=== PATIENT | male | born 1990 | race African-American/Black ===

== ENCOUNTER 2017-04-07 15:20 | Emergency (ER) | payer SELFPAY ==
[~2017-04-07] VITALS: Ht 182.9 cm; Wt 86.2 kg
[~2017-04-07 15:20] MED LIST: NKM
[2017-04-07 15:30] VITALS: BP 128/80
--- NOTE | 2017-04-07 15:31 | Emergency Room Report ---
History of Present Illness General Chief Complaint: Overdose Source: Patient, EMS Present Illness HPI 26-year-old male presents to the emergency department brought by ambulance for possible ingestion of excessive amount of Tylenol. Patient's girlfriend called 911 because she was concerned that he was drinking and took half a bottle of Tylenol. Patient presents mildly altered, slurred speech however alert and answering questions. Patient denies taking half a bottle of Tylenol, he states he only took 2-3 tablets. Patient denies SI, HI, or psychiatric history. Reports ETOH : beers today, three "shots" last night. Pt. reports previous recreational drug use, however denies recent use in the last 3 months. History and ROS is limited due to poor patient cooperation. Currently the patient is not on a 5150 hold. Allergies: Coded Allergies: No Known Allergies (Unverified , 04/07/17) Patient History Past Medical History: see triage record Past Surgical History: none Pertinent Family History: none Reviewed Nursing Documentation: PMH: Agreed, PSxH: Agreed Nursing Documentation-PMH Past Medical History: No Stated History Review of Systems All Other Systems: limited - poor pt. cooperation Physical Exam Vital Signs Date Time Temp Pulse Resp B/P (MAP) Pulse Ox O2 Delivery O2 Flow Rate FiO2 04/07/17 15:14 98.2 120 20 128/80 99 Room Air Sp02 EP Interpretation: reviewed, normal General Appearance: no apparent distress, alert, GCS 15, non-toxic Head: normocephalic, atraumatic Eyes: bilateral eye normal inspection, bilateral eye PERRL ENT: hearing grossly normal, normal voice Neck: full range of motion Respiratory: lungs clear, normal breath sounds, speaking full sentences Cardiovascular #1: regular rate, rhythm, normal capillary refill, tachycardia Gastrointestinal: non tender, soft Rectal: deferred Musculoskeletal: back normal, gait/station normal, normal range of motion, non- tender Neurologic: alert, oriented x3, responsive, motor strength/tone normal, sensory intact, normal gait, speech normal - slurred, but conversing normally Psychiatric: memory normal, no delusions, other - hyperactive, and has a very anxious and restless affect, pt. keeps wanting to leave department. Skin: normal color, no rash, warm/dry, well hydrated Medical Decision Making PA Attestation Dr. jones is my supervising Physician whom patient management has been discussed with. Diagnostic Impression: Primary Impression: Drug overdose Qualified Codes: T50.901A - Poisoning by unspecified drugs, medicaments and biological substances, accidental (unintentional), initial encounter ER Course 26-year-old male presents to the emergency department brought by ambulance for possible ingestion of excessive amount of Tylenol. Patient's girlfriend called 911 because she was concerned that he was drinking and took half a bottle of Tylenol. Patient presents mildly altered, slurred speech however alert and answering questions. Patient denies taking half a bottle of Tylenol, he states he only took 2-3 tablets. Patient denies SI, HI, or psychiatric history. Reports ETOH : beers today, three "shots" last night. Pt. reports previous recreational drug use, however denies recent use in the last 3 months. History and ROS is limited due to poor patient cooperation. Currently the patient is not on a 5150 hold. -Per telephone conversation with girlfriend to get more further details of this incident. She states that she is worried he may have taken too much Tylenol as he was drinking earlier and he does have some back pain for which she was taking Tylenol for her and she believes that due to pain acutely intoxicated with alcohol he may is unintentionally taken too many. Girlfriend states that ingestion occurred at approximately 10 AM this morning. She also confirms He has no psychiatric history. Pt is hyperactive, and has a very anxious and restless affect, pt. keeps wanting to leave department. Ddx considered but are not limited to OD, SI/HI, psychosis, UTI, intoxication Vital signs: are WNL, pt. is afebrile H&PE are most consistent with possible unintentional/ accidental OD, no precise plan of self harm, pt. is goal oriented and is worried about missing work this evening. -- Due to involvement of Tylenol pt. does require Acetaminophen level evaluation for full medical clearance, PT. will receive Psychiatric Consultation to determine psychiatric clearance. ORDERS: - Behavioral Restraints were initially ordered due to pt. not cooperating for MSE, blood draw, however after having Security come to bedside, pt. calmed down and began to cooperate. Restraints were never actually applied by RN, cancellation of restraints by Provider as they were not necessary. Acetaminophen : Elevated at 6.5 Given that first Tylenol level obtained is at 6 hours post ingestion, likely reyes that it will continue to rise is very low , however will repeat in 4 hours. -CBC, CMP: Unremarkable/ WNL -UA: negative for infection see results attached. -UDS: Negative -Salicylates- no acute intoxication. -Serum ETOH: 232 Given that first Tylenol level obtained is at 6 hours post ingestion, likely reyes that it will continue to rise is very low , however will repeat in 4 hours. ED INTERVENTIONS: - 2 mg Ativan IV -1 Liter NS PSYCH CONSULT: Dr. Garnett ( Psychiatric Consult) came to evaluate this patient. After speaking to him she is concluded that she is not at high risk for self-harm at this time. At this time pt. is not determined to have acute psychological condition to warrant 72 hour hold. DISPOSITION: Pt Eloped approximately 1 hour prior to when repeat Tylenol Level. Labs Test 04/07/17 15:25 04/07/17 15:40 Urine Opiates Screen Negative (NEGATIVE) Urine Barbiturates Screen Negative (NEGATIVE) Phencyclidine (PCP) Screen Negative (NEGATIVE) Urine Amphetamines Screen Negative (NEGATIVE) Urine Benzodiazepines Screen Negative (NEGATIVE) Urine Cocaine Screen Negative (NEGATIVE) Urine Marijuana (THC) Screen Negative (NEGATIVE) White Blood Count 6.1 K/UL (4.8-10.8) Red Blood Count 4.88 M/UL (4.70-6.10) Hemoglobin 13.7 G/DL (14.2-18.0) Hematocrit 42.7 % (42.0-52.0) Mean Corpuscular Volume 88 FL (80-99) Mean Corpuscular Hemoglobin 28.0 PG (27.0-31.0) Mean Corpuscular Hemoglobin Concent 32.0 G/DL (32.0-36.0) Red Cell Distribution Width 12.5 % (11.6-14.8) Platelet Count 222 K/UL (150-450) Mean Platelet Volume 6.5 FL (6.5-10.1) Neutrophils (%) (Auto) 67.1 % (45.0-75.0) Lymphocytes (%) (Auto) 23.2 % (20.0-45.0) Monocytes (%) (Auto) 7.8 % (1.0-10.0) Eosinophils (%) (Auto) 0.4 % (0.0-3.0) Basophils (%) (Auto) 1.5 % (0.0-2.0) Sodium Level 143 MMOL/L (136-145) Potassium Level 3.7 MMOL/L (3.5-5.1) Chloride Level 106 MMOL/L (98-107) Carbon Dioxide Level 23 MMOL/L (21-32) Anion Gap 14 mmol/L (5-15) Blood Urea Nitrogen 10 mg/dL (7-18) Creatinine 1.1 MG/DL (0.55-1.30) Estimat Glomerular Filtration Rate > 60 mL/min (>60) Glucose Level 107 MG/DL (74-106) Calcium Level 9.4 MG/DL (8.5-10.1) Total Bilirubin 0.7 MG/DL (0.2-1.0) Aspartate Amino Transf (AST/SGOT) 34 U/L (15-37) Alanine Aminotransferase (ALT/SGPT) 42 U/L (12-78) Alkaline Phosphatase 73 U/L (46-116) Total Protein 8.0 G/DL (6.4-8.2) Albumin 4.4 G/DL (3.4-5.0) Globulin 3.6 g/dL Albumin/Globulin Ratio 1.2 (1.0-2.7) Salicylates Level 1.5 ug/mL (2.8-20) Acetaminophen Level 66 MCG/ML (10-30) Serum Alcohol 232 mg/dL Last Vital Signs Date Time Temp Pulse Resp B/P (MAP) Pulse Ox O2 Delivery O2 Flow Rate FiO2 04/07/17 15:14 98.2 120 20 128/80 99 Room Air Disposition: ELOPED Condition: Unknown Jenny Cordeor Apr 07, 2017 15:31
[2017-04-07] MEDS: LORazepam Inj 2mg/ml 1ml IM ONE ×2 (15:43→15:47)
[2017-04-07 16:08] LABS: BASOPHILS % (AUTO) 1.5 % (0.0-2.0); EOSINOPHILS % (AUTO) 0.4 % (0.0-3.0); HEMATOCRIT 42.7 % (42.0-52.0); HEMOGLOBIN 13.7 G/DL (14.2-18.0); LYMPHOCYTES % (AUTO) 23.2 % (20.0-45.0); MEAN CORPUSCULAR VOLUME 88 FL (80-99); MONOCYTES % (AUTO) 7.8 % (1.0-10.0); NEUTROPHILS % (AUTO) 67.1 % (45.0-75.0); PLATELET COUNT 222 K/UL (150-450); RED BLOOD COUNT 4.88 M/UL (4.70-6.10); RED CELL DISTRIBUTION WIDTH 12.5 % (11.6-14.8); WHITE BLOOD COUNT 6.1 K/UL (4.8-10.8)
[2017-04-07 16:30] LABS: ALANINE AMINOTRANSFERASE 42 U/L (12-78); ALBUMIN 4.4 G/DL (3.4-5.0); ALBUMIN/GLOBULIN RATIO 1.2 (1.0-2.7); ALKALINE PHOSPHATASE 73 U/L (46-116); ANION GAP 14 mmol/L (5-15); ASPARTATE AMINO TRANSFERASE 34 U/L (15-37); BILIRUBIN,TOTAL 0.7 MG/DL (0.2-1.0); BLOOD UREA NITROGEN 10 mg/dL (7-18); CALCIUM 9.4 MG/DL (8.5-10.1); CARBON DIOXIDE 23 MMOL/L (21-32); CHLORIDE 106 MMOL/L (98-107); CREATININE 1.1 MG/DL (0.55-1.30); POTASSIUM 3.7 MMOL/L (3.5-5.1); SODIUM 143 MMOL/L (136-145)
[2017-04-07 18:05] VITALS: BP 128/80
--- NOTE | 2017-04-09 21:50 | Consultation ---
History of Present Illness General Chief Complaint: Overdose Present Illness HPI 26-year-old male presents to the emergency department brought by ambulance for possible ingestion of excessive amount of Tylenol. Patient's girlfriend called 911 because she was concerned that he was drinking and took half a bottle of Tylenol. the ot was uncooperative and stated that he was not suicidal and wants to leave. he stated that he will go back to [place] he hate [place]. the pts girlfriend call and we spoke to her the pt is not a dts dto he will be discharged Allergies: Coded Allergies: No Known Allergies (Unverified , 04/07/17) Medication History Scheduled No Known Medications* (NKM - No Known Medications*), 0 ., (Reported) Patient History History Provided By: Patient, Medical Record Healthcare decision maker Resuscitation status Advanced Directive on File Physical Exam Height (Feet): 6 Weight (Pounds): 190 Clarisse Garnett M.D. Apr 09, 2017 21:50
== END 2017-04-07 20:00 | disposition left against medical advice (07) ==
LOC: EDBD 15:20 → EMR 16:11
DX: T39.1X1A Poisoning by 4-Aminophenol derivatives, accidental (unintentional), initial encounter (principal); Y92.9 Unspecified place or not applicable
CPT/HCPCS: 36415; 80053; 80307; 85025; 96360; 99284; G0480; 80329